=== PATIENT | male | born 2000 | race African-American/Black ===

== ENCOUNTER 2019-10-30 19:43 | Emergency (ER) | payer OTHER ==
[~2019-10-30] VITALS: Ht 182.9 cm; Wt 56.7 kg
[2019-10-30 20:31] VITALS: BP 121/60
[2019-10-30] MEDS ORDERED: NAPROSYN500 MG PO (21:29)
[2019-10-30] MEDS ORDERED: NORFLEX100 MG PO ×2 (21:29→23:05)
== END 2019-10-30 21:56 | disposition home or self-care (01) ==
LOC: ER 19:43
DX: G44.209 Tension-type headache, unspecified, not intractable (principal)